=== PATIENT | male | born 1975 | race Two or more races ===

== ENCOUNTER 2018-09-28 13:27 | Emergency (ER) | payer BC ==
[~2018-09-28] VITALS: Ht 172.7 cm; Wt 65.8 kg
[2018-09-28] MEDS ORDERED: XANAX2 MG ORAL (13:40)
[2018-09-28] MEDS ORDERED: SUBOXONE 8 MG-1 EAC2 SL (13:40)
--- NOTE | 2018-09-28 13:45 | NUR ---
ED Nurse Note: pt walked in due to chronic low back pain that is happening for 15 years as verbalized by the pt, pt stated that after his flight to [place] 2 weeks ago it started to hurt even more. pt stated he is taking ibuprofen for pain and is having 7/10 constant pain. will continue to monitor.
[2018-09-28 13:47] VITALS: BP 127/73
[2018-09-28] MEDS ORDERED: Ketorolac 30mg Inj IM ONE (14:00)
[2018-09-28] MEDS ORDERED: Methocarbamol 750mg tab ORAL ONE (14:00)
--- NOTE | 2018-09-28 14:00 | NUR ---
ED Nurse Note: pt medicated and tolerated well
[2018-09-28] MEDS ORDERED: LIDODERM700 M1 TOPIC (14:34)
[2018-09-28] MEDS ORDERED: IBUPROFEN600 MG ORAL (14:34)
[2018-09-28] MEDS ORDERED: ROBAXIN-750750 MG PO (14:34)
[2018-09-28 14:45] VITALS: BP 127/73
--- NOTE | 2018-09-28 14:45 | NUR ---
ER DISCHARGE NOTE: Patient is cleared to be discharged per ERMD, pt is aox4, on room air, with stable vital signs. pt was given dc and prescription instructions, pt was able to verbalize understanding, pt id band removed without complications. pt is able to ambulate with steady gait. pt took all belongings.
--- NOTE | 2018-09-28 17:26 | Emergency Room Report ---
History of Present Illness General Chief Complaint: Back Pain-No Injury Source: Patient Present Illness HPI 43-year-old male presents ED for evaluation. Complaining of back pain. States that he's had history of chronic back pain and got exacerbated 2 weeks ago. Denies any recent fall or injury. States he's been trying is indications without significant relief. Pain is throbbing, 8 out of 10, nonradiating. Denies bowel or bladder incontinence. Denies any leg or motor weakness. No other aggravating relieving factors. Denies any other associated symptoms Allergies: Coded Allergies: No Known Allergies (Unverified , 09/28/18) Patient History Past Medical History: none Past Surgical History: none Pertinent Family History: none Social History: Denies: smoking, alcohol use, drug use Immunizations: UTD Reviewed Nursing Documentation: PMH: Agreed; PSxH: Agreed Nursing Documentation-PMH Past Medical History: No History, Except For Hx Cardiac Problems: No - SPINAL STENOSIS Review of Systems All Other Systems: negative except mentioned in HPI Physical Exam Vital Signs Date Time Temp Pulse Resp B/P (MAP) Pulse Ox O2 Delivery O2 Flow Rate FiO2 09/28/18 13:35 98.6 98 16 127/73 (91) 98 Room Air Sp02 EP Interpretation: reviewed, normal General Appearance: no apparent distress, alert, GCS 15, non-toxic Head: normocephalic Eyes: bilateral eye normal inspection, bilateral eye PERRL ENT: normal ENT inspection Neck: normal inspection Respiratory: normal inspection Cardiovascular #1: normal inspection Gastrointestinal: normal inspection Rectal: deferred Genitourinary: no CVA tenderness, no vertebral tenderness Musculoskeletal: normal inspection Neurologic: alert, oriented x3, responsive, motor strength/tone normal, sensory intact, speech normal Psychiatric: normal inspection Skin: normal inspection Lymphatic: normal inspection Medical Decision Making Diagnostic Impression: Primary Impression: Back pain Qualified Codes: M54.5 - Low back pain; G89.29 - Other chronic pain ER Course Hospital Course 43 yo M presents to ED c/o back pain Differential diagnoses include: pyelonephritis, kidney stone, muscle strain, Lspine fracture Clinical course Patient placed on stretcher. After initial history and physical I ordered toradol, robaxin and lidoderm for pain. Upon reassessment patient states pain has improved. On review of CURES; patient is receiving extensive monthly narcotic prescriptions. Patient admits to taking Suboxone. Is requesting no narcotics here. Will discharged to home with Motrin, Robaxin, Lidoderm. States he has a follow- up with his PMD in September. Diagnosis - back pain Stable and discharged to home with prescription for Rx Motrin, Robaxin, lidoderm. Followup with PMD. Return to ED if symptoms recur or worsen Last Vital Signs Date Time Temp Pulse Resp B/P (MAP) Pulse Ox O2 Delivery O2 Flow Rate FiO2 09/28/18 14:45 98.6 92 16 127/73 98 Room Air Status: improved Disposition: HOME, SELF-CARE Condition: Stable Scripts Ibuprofen* (MOTRIN*) 600 Mg Tablet 600 MG ORAL Q8H PRN for For Pain, #30 TAB 0 Refills Prov: Craig Hollis MD 09/28/18 Lidocaine (Lidoderm) 1 Each Adh..patch 1 PATCH TOPIC DAILY, #7 PATCH 0 Refills Patch(es) may remain in place for up to 12 hours in any 24-hour period. Prov: Craig Hollis MD 09/28/18 Methocarbamol* (ROBAXIN-750*) 750 Mg Tablet 750 MG PO TID, #21 TAB 0 Refills Prov: Craig Hollis MD 09/28/18 Referrals: [facility]ERR[facility] (PCP) [facility] Open 24 hour /7 days a week by Appointment Only [address] [facility] [address] Patient Instructions: Back Pain, Adult Craig Hollis MD September 28, 2018 17:26
== END 2018-09-28 14:45 | disposition home or self-care (01) ==
LOC: EMR 14:16
DX: M54.9 Dorsalgia, unspecified (principal); G89.29 Other chronic pain
CPT/HCPCS: 96372; 99283; J1885